=== PATIENT | female | born 1990 | race Caucasian/White ===

== ENCOUNTER → 2017-10-05 | Outpatient (CLI) | payer BC ==
[~2017-10-05] MED LIST: ACET-1693 PO; PRENTAB26 PO
== END | disposition home or self-care (01) ==
LOC: C.LAB1850 15:20
PROVIDERS: ATTEND Obstetrics & Gynecology
DX: O20.9 Hemorrhage in early pregnancy, unspecified (principal)

== ENCOUNTER → 2017-10-12 | Outpatient (CLI) | payer BC | END | disposition home or self-care (01) | LOC: C.LAB1850 08:19 | PROVIDERS: ATTEND Obstetrics & Gynecology | DX: O20.9 Hemorrhage in early pregnancy, unspecified (principal) ==

== ENCOUNTER 2018-09-23 07:38 | Inpatient (IN) ==
[2018-09-23] MEDS ORDERED: OXYTOCIN 30 UNITS/500 ML BAG IV PRN ×4 (08:19→14:45)
[2018-09-23 08:50] LABS: Hematocrit (blood only) 35.2 % (37-47); Mean Corpuscular Volume 86.9 fL (80-100); Mean Platelet Volume 11.9 fL (7.4-10.4); Platelet Count 175 K/uL (130-400); RDW Coefficient of Variation 14.9 % (11.5-14.5); RDW Standard Deviation 47.8 fL (36.4-46.3); Red Blood Count 4.05 M/uL (4.2-5.4); White Blood Count 10.15 K/uL (4.8-10.8)
--- NOTE | 2018-09-23 08:51 | History & Physical Report ---
Date of Service September 23, 2018 Assessment & Plan (1) Term : 28yo at 41.1 weeks GA. IOL for late term 1. Fetus: Cat 1 2. Labor: Will augment with oxytocin. AROM when able. 3. Vitals: WNL 4. GBS - 5. Rh positive History of Present Illness Primary Care Provider: Jan Harris 28yo at 41.1 weeks GA. Patient presents for scheduled IOL. irregular contractions. No VB, LOF. Good FM. complicated by prior Hx of gestational htn. Allergies Allergy/AdvReac Type Severity Reaction Status Date / Time No Known Allergies Allergy Unverified 01/09/14 05:52 Home Medications Home Medications Medication Instructions Recorded Confirmed Type PNV cmb#95-ferrous fumarate-FA 1 tab PO DAILY #0 tab 01/09/14 09/23/18 History [] Aspirin Low Dose 81 mg PO DAILY 09/23/18 09/23/18 History Claritin 1 tab PO DAILY 09/23/18 09/23/18 History calcium carbonate [Tums] 1 mg PO Q4WK 09/23/18 09/23/18 History Patient History Medical History History of tooth extraction ~2008 Surgical History History of adenoidectomy 1998 History of tonsillectomy 1998 Family History Grandfather (Paternal) Family history of diabetes mellitus Grandmother (Maternal) Family history of diabetes mellitus Father Hypertension Grandfather (Maternal) Cancer Grandmother (Paternal) Stroke Social History Preferred Language: Uzbek Communication Ability: Effective Pit Manager Required: No Beliefs That Will Affect Care: None marital status: Current Living Situation: Family Other Information That Helps Us Care for You: No Feels Safe at Home: Yes Safety Concerns: Feels Safe At This Time Smoking Status: Never smoker Second Hand Exposure: No Hx Alcohol Use: Yes (when not ) Alcohol type: beer, wine and hard liquor Hx Substance Use: No Physical Exam Gastrointestinal (Abdomen): normal bowel sounds, soft, nontender, no hepatosplenomegaly Genitourinary: OB Exam Abdomen: + vertex, + estimated weight (7.5-8.5) and + irregular contractions Manual OB Exam: + cervical dilation 2 cm, + cervical effacement 30% and + station high OB Exam Monitor Tracing: + external FHT monitor used, + external uterine monitor used and + category I Results & Data Vital Signs (Past 12 Hours) Vital Signs Temp Pulse Resp BP 09/23/18 08:44 37.1 C 79 18 129/76
[2018-09-23 08:55] LABS: Mean Corpuscular Hgb Conc 34.1 g/dL (32-36)
[2018-09-23] MEDS: LACTATED RINGER'S 1,000 ML IV PRN ×2 (09:25→13:02)
[2018-09-23] MEDS ORDERED: BUPIVACAINE 0.25% 30 ML VIAL ONE (12:29)
[2018-09-23] MEDS ORDERED: fentaNYL citrate 100 MCG/2 ML VIAL ONE (12:30)
[2018-09-23] MEDS ORDERED: ePHEDrine sulfate 50 MG/ML AMP ONE (12:30)
[2018-09-23] MEDS ORDERED: fentaNYL 2MCG/ML ROPIV 1.25MG/ML 100 ML BAG EPI ONE (12:31)
--- NOTE | 2018-09-23 12:59 | Anesthesiology Consultation ---
Date of Service September 23, 2018 Assessment & Plan Chart Review Chart Review: Patient NOT seen in Pre Admission Testing and Acceptable Risk for Labor Epidural Consults Requested none ASA ASA2 Proposed Anesthesia Anesthesia Type: Labor Epidural and CSE Risk / Benefits Reviewed With: PT / POA / Parent / Guardian, Accepts Plan and Informed Consent Obtained History Height/Weight Height: 5 ft 3 in Weight: 94.801 kg Allergies Allergy/AdvReac Type Severity Reaction Status Date / Time No Known Allergies Allergy Unverified 01/09/14 05:52 Medications Home Medications Medication Instructions Recorded Confirmed Last Taken PNV cmb#95-ferrous fumarate-FA 1 tab PO DAILY #0 tab 01/09/14 09/23/18 09/22/18 08:00 [] Aspirin Low Dose 81 mg PO DAILY 09/23/18 09/23/18 09/22/18 19:00 Claritin 1 tab PO DAILY 09/23/18 09/23/18 09/21/18 08:00 calcium carbonate [Tums] 1 mg PO Q4WK 09/23/18 09/23/18 09/22/18 23:00 Active Medications Generic Name Dose Route Start Last Admin Trade Name Freq PRN Reason Stop Dose Admin Lactated Ringer's 1,000 mls @ 125 mls/hr 09/23/18 08:19 09/23/18 12:25 Lr IV 09/25/18 08:18 999 mls/hr .Q8H PRN Infusion L&D Protocol Protocol Oxytocin 30 units in 500 mls @ 10 mls/hr 09/23/18 08:51 09/23/18 12:22 Pitocin IV 09/25/18 08:50 0.6 units/hr .Q24H PRN 10 mls/hr Labor Induction/Augmentation Titration Protocol 0.6 UNITS/HR NPO Date Last Intake of Fluids: 09/23/18 Time Last Intake of Fluids: 07:00 Date Last Intake of Solids: 09/23/18 Time Last Intake of Solids: 07:00 Past Medical History Medical History Anemia GERD (gastroesophageal reflux disease) History of tooth extraction ~2008 Obesity Exercise / Class Metabolic Activity II 4-5 Yardwork/Stairs/Walk up hill Past Family History Family History Grandfather (Paternal) Family history of diabetes mellitus Grandmother (Maternal) Family history of diabetes mellitus Father Hypertension Grandfather (Maternal) Cancer Grandmother (Paternal) Stroke Past Surgical History Surgical History History of adenoidectomy 1998 History of tonsillectomy 1998 Past Anesthesia History No Hx of Anesthesia Complications and No Family Hx of Anesthesia Complications History of PONV No Hx of PONV and No Hx of Motion Sickness Social History Smoking Status: Never smoker Hx Alcohol Use: Yes (when not ) Alcohol type: beer, wine and hard liquor alcohol intake frequency: a few times a month Hx Substance Use: No substance use type: does not use Physical Exam Vital Signs Last Vital Signs Temp 36.9 C 09/23/18 12:38 Pulse 84 09/23/18 12:51 Resp 18 09/23/18 12:38 BP 136/75 09/23/18 12:37 Pulse Ox 100 09/23/18 12:51 Constitutional + obese ENMT Mouth: no dentition abnormality Thyromental Distance: > or= 3.5 Finger Breadths Mallampati Class: II Neck normal visual inspection and trachea midline; neck extension not limited Respiratory normal respiratory effort Auscultation: lungs clear to auscultation bilaterally Cardiovascular Rate/Rhythm: regular rate and regular rhythm Heart Sounds: no murmur Vessels: no carotid bruit Musculoskeletal Spine: lumbar spine normal to inspection; normal cervical ROM Neurologic moves all extremities Motor/Sensory: no sensory deficit Psychiatric Orientation: alert and oriented x 3 Testing Laboratory Results 09/23/18 08:40
[2018-09-23] MEDS ORDERED: DiphenhydrAMINE HCL 50 MG/ML VIAL IV PRN (13:23)
[2018-09-23] MEDS ORDERED: NALOXONE HCL 1 MG in SODIUM CHLORIDE 0.9% 1000ML 1,000 ML IV PRN (13:23)
[2018-09-23] MEDS ORDERED: NALOXONE HCL 0.4 MG/1 ML VIAL/CARP IV PRN (13:23)
[2018-09-23] MEDS ORDERED: NALBUPHINE HCL INJ 10 MG/ML AMP IV PRN (13:23)
[2018-09-23] MEDS ORDERED: ePHEDrine sulfate 50 MG/ML AMP IV PRN (13:23)
[2018-09-23] MEDS ORDERED: fentaNYL 2MCG/ML ROPIV 1.25MG/ML 100 ML BAG EPI PRN (13:23)
--- NOTE | 2018-09-23 14:10 | Labor Progress Brief Note ---
Date of Service September 23, 2018 Subjective Reason For Note: Routine Evaluation Current Pain Level(1-10): 0 Assessment & Plan (1) Term : 28yo at 41.1 weeks GA. IOL for late term 1. Fetus: Cat 1 2. Labor: oxytocin. AROM, Progressing well 3. Vitals: WNL 4. GBS - 5. Rh positive Physical Exam Genitourinary: OB Exam Abdomen: + regular contractions Manual OB Exam: + cervical dilation 7 cm, + cervical effacement 80% and + station 0 OB Exam Monitor Tracing: + external FHT monitor used, + external uterine monitor used and + category I Results & Data Vital Signs (Past 12 Hours) Vital Signs Temp Pulse Resp BP Pulse Ox 09/23/18 14:06 75 99 09/23/18 14:01 76 98 09/23/18 13:56 77 97 09/23/18 13:54 70 124/68 09/23/18 13:51 73 98 09/23/18 13:46 77 98 09/23/18 13:41 72 99 09/23/18 13:37 76 123/70 09/23/18 13:36 80 98 09/23/18 13:34 88 134/62 09/23/18 13:32 89 128/67 09/23/18 13:31 84 99 09/23/18 13:28 86 121/63 09/23/18 13:26 74 99 09/23/18 13:25 81 117/60 09/23/18 13:22 86 117/68 09/23/18 13:21 87 99 09/23/18 13:20 90 123/59 L 09/23/18 13:16 98 H 99 09/23/18 13:13 81 127/75 09/23/18 13:11 77 100 09/23/18 13:06 96 H 100 09/23/18 13:01 99 H 100 09/23/18 12:56 91 H 100 09/23/18 12:51 84 100 09/23/18 12:46 69 100 09/23/18 12:41 75 99 09/23/18 12:38 36.9 C 18 09/23/18 12:37 83 136/75 09/23/18 12:36 75 100 09/23/18 12:24 73 135/80 07/18/19 10:54 37.1 C 18 09/23/18 10:53 71 132/77 09/23/18 08:44 37.1 C 79 18 129/76
[2018-09-23] MEDS ORDERED: HYDROCORTISONE ACETATE 25 MG SUPP PR PRN (14:45)
[2018-09-23] MEDS ORDERED: BENZOCAINE 20% AER SPR 82.5 GM CAN EXT PRN (14:45)
[2018-09-23] MEDS ORDERED: SUPERCREAM 0.870% 15 GM JAR EXT PRN (14:45)
[2018-09-23] MEDS ORDERED: ACETAMINOPHEN 325 MG TAB PO PRN (14:45)
[2018-09-23] MEDS ORDERED: DIPHTHERIA/TETANUS/PERTUSSIS 0.5 ML SYR/VIAL IM ONE (14:45)
[2018-09-23] MEDS ORDERED: BISACODYL 10 MG SUPP PR PRN (14:45)
--- NOTE | 2018-09-23 15:36 | Delivery Summary ---
DATE OF OPERATION: 09/23/2018 PROCEDURE: Normal spontaneous vaginal delivery. SURGEON: Hima Skinner MD PREOPERATIVE DIAGNOSIS: Single intrauterine at 41 weeks gestational age. POSTOPERATIVE DIAGNOSES: 1. Single intrauterine at 41 weeks gestational age. 2. Delivered. ESTIMATED BLOOD LOSS: 200 mL. DRAINS: None. FLUIDS: Continuous lactated ringer. URINE OUTPUT: Not measured. COMPLICATIONS: None. FINDINGS: Viable with weight and Apgars pending. INDICATIONS: Corie is a 28-year-old, G3, P1-0-1-1 at 41 weeks 1 day gestational age. The patient presents for scheduled induction of labor for late term . At initial evaluation, she was found to be 2 cm dilated, 30% effaced, -3 station. She was started on oxytocin per regular protocol and subsequently received an epidural several hours later. The patient continued to progress in labor to 8 cm dilated, at which time she underwent artificial rupture of membranes. The patient quickly progressed in labor to complete-complete +2 and felt the urge to push. DESCRIPTION OF PROCEDURE: The patient progressed to 10 cm dilated, 100% effaced, +2 station, pushed over intact perineum with epidural anesthesia and delivered a viable with weight and Apgars as noted above. Head of delivered in OSEI position, rest into right transverse. Nuchal cord x1 was noted which was easily reduced. Body and shoulders quickly followed. was delivered to maternal abdomen and was noted that it was not vigorous immediately after delivery. Stimulation of the went on for approximately 30 seconds, after which the cord was double clamped and cut and shortly after the cord was cut, the was noted to be vigorous and was able to remain on the maternal abdomen. Cord blood was then obtained. Attention was then turned to delivery of the placenta which was delivered intact, 3-vessel cord, with gentle cord traction. On inspection of perineum, vagina and cervix, there was noted to be no lacerations. Needle, sponge and instrument counts were correct at the completion of the case. Both mother and stable in the immediate post-delivery. I attest to the content of the Intraoperative Record and any orders documented therein. Any exception s are noted below.
--- NOTE | 2018-09-23 16:05 | Anesthesia Procedure Note ---
Date of Service September 23, 2018 Anesthesia Post Epidural Note Vital Signs Vital Signs: Temp Pulse Resp BP Pulse Ox 37.4 C 83 18 126/61 92 09/23/18 15:44 09/23/18 15:53 09/23/18 15:44 09/23/18 15:53 09/23/18 14:37 Notes Mental Status: alert / awake / arousable Nausea / Vomiting: adequately controlled Pain: adequately controlled Airway Patency, RR, SpO2: stable & adequate BP & HR: stable & adequate Hydration State: stable & adequate Neuraxial Anesthesia: was administered and sensory block is resolving Anesthetic Complications: no major complications apparent Epidural: Removed without complications and With tip intact
[2018-09-23] MEDS: IBUPROFEN 600 MG TAB PO PRN ×2 (18:04→22:08)
[2018-09-23] MEDS: DOCUSATE SODIUM 100 MG CAP PO SCH (21:07)
[2018-09-24] MEDS: IBUPROFEN 600 MG TAB PO PRN ×2 (05:04→09:03)
--- NOTE | 2018-09-24 05:41 | Obstetrical Progress Note ---
Date of Service <Chema Anderson MD - Last Filed: 09/24/18 07:10> September 24, 2018 Assessment & Plan <Chema Anderson MD - Last Filed: 09/24/18 07:10> Day #:: 1 ([28 y/o s/p @ 41+1] -PPD#1 - GBS neg., Blood Type O+- Feels well today. Eating well, voiding well, ambulating well. - Pain well controlled with Motrin. - Routine post care - After discharge will have [address] Skinner.) Subjective <Chema Anderson MD - Last Filed: 09/24/18 07:10> Ambulation: ambulating normally Voiding: no voiding problems Passing Gas:: Yes Diet Tolerance:: regular diet Lochia:: Moderate Feeding Type:: breast feeding (latching well) Current Pain Level(1-10): 2 (pain improved with Motrin) Physical Exam <Chema Anderson MD - Last Filed: 09/24/18 07:10> OB PE General: Alert, oriented. No acute distress. Cardiac: Regular rate and rhythm, no murmurs/rubs/gallops. Respiratory: Clear to auscultation anterior and posteriorly, no wheezes/ra les/rhonchi. No increased work of breathing. Symmetrical chest rise. No respiratory distress. Abdomen: Soft, nontender, nondistended. Bowel sounds present. Uterus: Uterine fundus firm, palpable 1 cm above umbilicus. Lower Extremities: No lower extremity edema or swelling. No deep calf pain. Marissa's negative bilaterally. OB ROS Denies fever, chills, sweats Denies shortness of breath, difficulty breathing, chest pain, palpitations, chest pressure. Denies breast pain. Denies dysuria. Denies headache. Results & Data <Chema Anderson MD - Last Filed: 09/24/18 07:10> Vital Signs (Past 12 Hours) Vital Signs Temp Pulse Resp BP Pulse Ox 09/24/18 04:45 36.7 C 73 17 112/72 98 09/24/18 00:15 36.7 C 70 16 113/69 98 09/23/18 20:55 36.6 C 88 16 103/66 98 <Hima Skinner MD - Last Filed: 09/28/18 15:16> Co-Signing Physician Notes Patient seen and evaluated and agree with the above findings and plan.
[2018-09-24 07:13] LABS: Hematocrit (blood only) 34.6 % (37-47); Hemoglobin 11.9 g/dL (12.0-16.0)
[2018-09-24] MEDS: DOCUSATE SODIUM 100 MG CAP PO SCH (07:49)
[2018-09-24] MEDS ORDERED: PRENATAL VITAMIN 1 TAB PO SCH (08:00)
[2018-09-24] MEDS ORDERED: BISACODYL 5 MG TABEC PO SCH (20:00)
== END 2018-09-24 15:50 | disposition home or self-care (01) | DRG 807 ==
LOC: 4S1 07:38 → 4S2 16:53